=== PATIENT | female | born 1980 | race Two or more races ===

== ENCOUNTER 2017-05-13 03:48 | Emergency (ER) | payer OTHER ==
[~2017-05-13] VITALS: Ht 167.6 cm; Wt 127.0 kg
[~2017-05-13 03:48] MED LIST: LEVSIN0.125 MG PO; PROTONIX40 MG PO; ZANTAC300 MG PO; ZOFRAN4 MG PO
[2017-05-13] MEDS ORDERED: KETO10TA2 PO (08:03)
[2017-05-13] MEDS ORDERED: ZOFRAN8 MG PO (08:03)
[2017-05-13] MEDS ORDERED: ZANTAC300 MG PO (08:03)
== END 2017-05-13 08:26 | disposition home or self-care (01) ==
LOC: ER 03:48
DX: R10.32 Left lower quadrant pain (principal); R11.11 Vomiting without nausea